=== PATIENT | female | born 1970 | race Caucasian/White ===

== ENCOUNTER 2020-01-24 23:11 | Emergency (ER) | payer OTHER ==
[~2020-01-24] VITALS: Ht 162.6 cm; Wt 90.7 kg
[2020-01-25] MEDS ORDERED: METOCLOPRAMIDE HCL 10 MG/2 ML VIAL IM ONE
[2020-01-25] MEDS ORDERED: diphenhydrAMINE 50 MG/1 ML VIAL IM ONE
[2020-01-25] MEDS ORDERED: METOCLOPRAMIDE HCL 10 MG/2 ML VIAL ONE (00:04)
[2020-01-25] MEDS ORDERED: diphenhydrAMINE 50 MG/1 ML VIAL ONE (00:04)
[2020-01-25 00:58] LABS: BASOPHILS # (AUTO) 0.1 K/uL (0.0-8.0); BASOPHILS % (AUTO) 1.1 % (0.0-2.0); EOSINOPHILS # (AUTO) 0.1 K/uL (0.0-0.7); EOSINOPHILS % (AUTO) 1.5 % (0.0-7.0); HEMATOCRIT 38.6 % (31.2-41.9); HEMOGLOBIN 13.4 g/dL (10.9-14.3); LYMPHOCYTES # (AUTO) 2.4 K/uL (20.0-40.0); LYMPHOCYTES % (AUTO) 33.9 % (20.5-51.5); MEAN CORPUSCULAR HEMOGLOBIN 28.7 uug (24.7-32.8); MEAN CORPUSCULAR HGB CONC 35 g/dL (32.3-35.6); MEAN CORPUSCULAR VOLUME 82.7 fL (75.5-95.3); MONOCYTES # (AUTO) 0.3 K/uL (2.0-10.0); MONOCYTES % (AUTO) 3.8 % (0.0-11.0); NEUTROPHILS # (AUTO) 4.2 K/uL (1.8-8.9); NEUTROPHILS % (AUTO) 59.7 % (38.5-71.5); PLATELET COUNT (AUTO) 252 K/uL (179-408); RED BLOOD CELL COUNT(AUTO) 4.67 MIL/uL (3.63-4.92)
--- NOTE | 2020-01-25 01:00 | NUR ---
pt in bed, asleep. easily arousable no s/s of distress respirations even and unlabored safety precaution in place. bed locked, lowest position will continue to monitor pt
[2020-01-25 01:06] LABS: BILIRUBIN,TOTAL 0.3 mg/dL (0.2-1.0); CREATININE 1.2 mg/dL (0.6-1.3); TOTAL PROTEIN, SERUM 7.3 g/dL (6.4-8.2)
--- NOTE | 2020-01-25 03:25 | NUR ---
pt in bed, asleep easily arousable no s/s of distress safety precautions in place. bed locked lowest position will continue to monitor
--- NOTE | 2020-01-25 05:19 | NUR ---
pt in bed, asleep. easily arousable no s/s of distress respirations even and unlabored safety precautions in place bed locked, lowest position will continue to monitor
--- NOTE | 2020-01-25 05:48 | NUR ---
Patient discharged to home in stable condition. Written and verbal after care instructions given. Patient verbalizes understanding of instructions. Stressed follow up or return to ER for worsening s/s. aa/ox4. able to speak in complete sentences in stable condition ambulatory with steady gait respirations even and unlabored all belongings with pt pt's friend will drive pt home
[2020-01-25 05:56] VITALS: BP 108/70
== END 2020-01-25 05:48 | disposition home or self-care (01) ==
LOC: ER 23:13
DX: R11.2 Nausea with vomiting, unspecified (principal); F12.929 Cannabis use, unspecified with intoxication, unspecified; F45.8 Other somatoform disorders; E78.5 Hyperlipidemia, unspecified; Z88.2 Allergy status to sulfonamides
CPT/HCPCS: 36415; 80053; 84702; 85025; 93005; 96372 ×2; 99284; J1200; J2765